=== PATIENT | female | born 1970 | race Caucasian/White ===

== ENCOUNTER → 2017-05-23 | Day surgery (SDC) | payer OTHER ==
[2017-05-23 08:47] LABS: HEMOGLOBIN 14.3 g/dL (12.2-16.2); LYMPH # 2.1 K/mm3 (0.7-4.5); LYMPH % 34.4 % (10-50.0)
[2017-05-23 08:52] LABS: BUN 14 mg/dL (7-18)
[2017-05-23 08:53] LABS: GFR (ESTIMATED) 132 ML/MIN (59-)
--- NOTE | 2017-05-23 10:26 | RADIOLOGY REPORT PS360 ---
CARDIAC CATHETERIZATION DATE OF CATHETERIZATION:05/23/2017 9:14 AM PROCEDURES: CARDIAC CATHETERIZATION DATE OF CATHETERIZATION:05/23/2017 9:14 AM PROCEDURES: 1. Left heart catheterization 2. Left ventriculogram 3. Selective coronary angiogram 4. FFR to the LAD INDICATION FOR TEST: 1. Accelerated angina pectoris 2. Known coronary artery disease 3. History of coronary artery stenting Informed consent was obtained prior to the procedure. COMPLICATIONS: None ESTIMATED BLOOD LOSS: Less than 10 ml. TECHNIQUE: One percent lidocaine used to anesthetize the right anterior aspect of the wrist. The right radial artery was accessed via the Seldinger technique. A 6 Sammarinese sheath was placed in the right radial artery. 2.5 mg of verapamil, 800 mcg of nitroglycerin and 5000 U Heparin were given through the arterial sheath. The trap catheter was also used to perform left heart catheterization left ventriculogram and selective coronary angiography. At the end of the diagnostic angiogram and additional 2000 units of heparin was administered intravenously giving an ACT out of range. A JL 3.5 guide catheter was placed in the ascending aorta and an FFR wire was normalized. The guide catheter was used intubate the left main artery and the wire was placed into the distal LAD. Adenosine was infused in the FFR index dropped to 0.87. This did not meet hemodynamic significance therefore the apparatus was removed the sheath was removed good hemostasis was achieved using TR banding patient was transferred to the postop holding area in stable condition ANGIOGRAPHIC RESULTS: 1. The left main artery normal 2. The left anterior descending artery has a proximal concentric 30% stenosis immediately proximal to the bifurcation of the LAD and large first diagonal artery. Distal to the diagonal artery the LAD has a concentric 50% stenosis followed by 30% diffuse mid vessel stenoses. The first diagonal artery is a large vessel and has a stent in the proximal segment which has 50-60% proximal in-stent restenosis and a distal 80-90% in-stent restenotic lesion at a 2 mm segment at the distal end of the stent. 3. The circumflex artery is a large codominant vessel. The first obtuse marginal artery is a large caliber vessel with a proximal 30-40% eccentric stenosis. The second obtuse marginal artery is 2.5 mm in diameter and has a mid vessel eccentric 50% stenosis the third smaller 1.5 mm obtuse marginal artery has mid vessel 50% stenoses 4. The right coronary artery is a codominant vessel and has proximal concentric 20% stenosis with a mid vessel concentric 30% stenosis 5. The LEON ventriculogram reveals normal 65% 6. The left ventricular end-diastolic pressure 20 mmHg IMPRESSION: 1. Coronary artery disease as described above 2. Diffuse endothelial dysfunction primarily concentrated in the LAD 3. Patent diagonal stents with severe distal in-stent restenosis in an area which is large enough to stent but would more likely respond favorably to medical management 4. Normal ejection fraction 5. Mildly elevated LVEDP PLAN: 1. Medical management 2. Long-acting nitrates combined with Ranexa 3. Avoidance of tobacco products 4. LDL less than 55 5. Maximize antianginal medications 1. 2. 3. 4. INDICATION FOR TEST: 1. 2. 3. Informed consent was obtained prior to the procedure. COMPLICATIONS: ESTIMATED BLOOD LOSS: Less than 10 ml. TECHNIQUE: One percent lidocaine was used to anesthetize the right groin. The right femoral artery was accessed via the Seldinger technique. A 4-Sammarinese sheath was placed in the right femoral artery. The JL-4 and JR-4 catheter was also used to perform left heart catheterization and left ventriculography. At the end of the procedure the patient was transferred to the post-op holding area in stable condition for arterial sheath removal. ANGIOGRAPHIC RESULTS: 1. The left main artery 2. The left anterior descending artery 3. The circumflex artery 4. The right coronary artery 5. The LEON ventriculogram reveals 6. The left ventricular end-diastolic pressure IMPRESSION: 1. coronary arteries. 2. 3. 4. 5. PLAN: 1. 2. 3.
[2017-05-23 12:47] VITALS: BP 133/76
== END ==
LOC: CATHLAB 07:22
PROVIDERS: Internal Medicine
PROC: B2111ZZ Fluoroscopy of Multiple Coronary Arteries using Low Osmolar Contrast (ICD-10-PCS; 2017-05-23)
PROC: B2151ZZ Fluoroscopy of Left Heart using Low Osmolar Contrast (ICD-10-PCS; 2017-05-23)
PROC: 4A023N7 Measurement of Cardiac Sampling and Pressure, Left Heart, Percutaneous Approach (ICD-10-PCS; 2017-05-23)
PROC: B2111ZZ Fluoroscopy of Multiple Coronary Arteries using Low Osmolar Contrast (ICD-10-PCS; 2017-05-23)
PROC: B2151ZZ Fluoroscopy of Left Heart using Low Osmolar Contrast (ICD-10-PCS; 2017-05-23)
PROC: 4A033BC Measurement of Arterial Pressure, Coronary, Percutaneous Approach (ICD-10-PCS; 2017-05-23)
PROC: 4A023N7 Measurement of Cardiac Sampling and Pressure, Left Heart, Percutaneous Approach (ICD-10-PCS; principal; 2017-05-23 09:45)
DX: I25.118 Atherosclerotic heart disease of native coronary artery with other forms of angina pectoris (principal); Z72.0 Tobacco use; Z95.818 Presence of other cardiac implants and grafts
CPT/HCPCS: C1725; C1769; J0153; J1644; Q9967